=== PATIENT | female | born 1985 | race Caucasian/White ===

== ENCOUNTER 2022-09-04 14:02 | Emergency (ER) | payer OTHER, SELFPAY ==
--- NOTE | ~2022-09-04 | US_ITS ---
EXAMINATION: US VENOUS ULTRASOUND WITH DOPPLER LOWER EXTREMITY, BILATERAL CLINICAL INFORMATION: Edema COMPARISON: None available. TECHNIQUE: Ultrasound of the deep veins is performed from the hip to the calf with compression sonography and color and pulse Doppler assessment. Spectral analysis with color-flow imaging is performed. FINDINGS: RIGHT: There is normal venous compression and respiratory variation and augmented flow. The visualized common femoral vein, superficial femoral vein, profunda femoral vein, popliteal vein, and the trifurcation region shows no evidence of deep venous thrombosis. Suspect mildly complex Acharya's cyst measuring up to 3.1 cm. LEFT: There is normal venous compression and respiratory variation and augmented flow. The visualized common femoral vein, superficial femoral vein, profunda femoral vein, popliteal vein, and the trifurcation region shows no evidence of deep venous thrombosis. Suspect similar Acharya's cyst measuring up to 3.4 cm. If the patient's symptoms persist, followup ultrasound in 5 days 7 days might be of value to exclude proximal propagation from a non-visualized calf vein. US/US venous duplex LE BI IMPRESSION: No DVT demonstrated in the both lower extremity. Acharya's cyst.
--- NOTE | 2022-09-04 15:25 | ED.LOWEXIN ---
HPI - Extremity Injury (Lower) General Chief Complaint: Extremity Injury, Lower Stated Complaint: legs swollen in pain Related Data Home Medications Medication Instructions Recorded Confirmed buprenorphine 8 mg-naloxone 2 mg 30 mg sublingual DAILY 04/20/22 sublingual film (Suboxone) clonidine HCl 0.1 mg tablet 0.1 mg PO BID 04/20/22 methylphenidate HCl 10 mg biphasic 10 mg PO DAILY 04/20/22 50-50 capsule,extended release methylphenidate HCl 40 mg biphasic 40 mg PO DAILY 04/20/22 50-50 capsule,extended release quetiapine 50 mg tablet mg PO 04/20/22 Previous Rx's Medication Instructions Recorded CPAP (CPAP Machine/Device) #1 ea 08/20/22 Allergies Allergy/AdvReac Type Severity Reaction Status Date / Time acetaminophen [Vicodin] Allergy Unknown Itchy Verified 04/20/22 11:00 codeine [CODEINE] Allergy Unknown ITCHING Verified 04/20/22 11:00 hydrocodone [Vicodin] Allergy Unknown Itchy Verified 04/20/22 11:00 tramadol [TRAMADOL] Allergy Unknown DIZZY/NAUSE Verified 04/20/22 11:00 A From VICODIN Allergy Unknown ITCHING Uncoded 11/09/19 18:24 [facility] Past Medical History Medical History (Updated 09/14/22 @ 17:33 by KALPANA Iglesias) ADHD Asthma Brain aneurysm Opioid dependence, in remission Social History Social History Housing: Apartment Patient Tobacco Use Status: Former Tobacco user Tobacco use type: Cigarette e-Cigarette/Vaping Use: Never Used Advance Directives: No Advance Directives Information Provided: Yes service: No Current occupational status: disabled Physical Exam Vital Signs: Vital Signs: Last Vital Signs Temp 97.5 F 09/04/22 15:26 Pulse 81 09/04/22 15:26 Resp 20 09/04/22 15:26 BP 146/90 H 09/04/22 15:26 Pulse Ox 98 09/04/22 15:26 O2 Del Method Room Air 09/04/22 15:26 BMI result Body Mass Index 46.3 Course Course Course Narrative: RME: 36yo F w/PMHx ADHD, Asthma, aneurysm c/o Left sided CP/shoulder pain since this AM and bilateral LE edema x 1 week. Not currently on diuretic. denies SOB +pitting edema noted bilaterally, VSS EKG, Labs, Venous duplex US ordered Full HPI, ROS and PE to be performed by primary ED provider. Medical Decision Making Lab Data 09/04/22 16:14 09/04/22 16:14 Labs: Lab Results 09/04/22 09/04/22 09/04/22 Range/Units 16:14 16:14 16:14 WBC 6.0 (4.8-10.8) X10*3/uL RBC 4.07 L (4.20-5.50) X10*6/uL Hgb 12.2 (12.0-16.0) g/dl Hct 35.9 L (37.0-47.0) % MCV 88.2 (80.0-98.0) fL MCH 30.0 (27.0-33.0) pg MCHC 34.0 (31.0-35.0) g/dl RDW 12.7 (11.0-16.0) % Plt Count 223 (160-400) X10*3/uL MPV 9.8 (9.4-12.3) fL Immature Gran % (Auto) 0.3 (0.0-0.4) % Neut % (Auto) 62.5 (45-73) % Lymph % (Auto) 28.5 (20-40) % Hopkins % (Auto) 6.2 (2-11) % Eos % (Auto) 2.0 (0-4) % Baso % (Auto) 0.5 (0-2) % Lymph # (Auto) 1.7 (1.2-4.9) X10*3/uL Hopkins # (Auto) 0.4 (0.1-1.2) X10*3/uL Eos # (Auto) 0.1 (0.0-0.4) X10*3/uL Baso # (Auto) 0.0 (0.0-0.2) X10*3/uL Abs Immat Gran (auto) 0.02 (0.00-0.03) X10*3/uL Absolute Neuts (auto) 3.7 (2.0-8.3) x10*3/uL Absolute Nucleated RBC 0.000 (0.0-0.012) X10*3/uL Nucleated RBC % (auto) 0.0 (0.0-0.2) /100WBC PT 11.4 (10.0-13.1) SEC INR 1.0 (0.9-1.1) Sodium 136 (135-145) mmol/L Potassium 3.5 (3.3-5.1) mmol/L Chloride 103 (96-108) mmol/L Carbon Dioxide 25 (22-29) mmol/L Anion Gap 12 (12-20) BUN 5 L (9-16) mg/dL Creatinine 0.73 (0.5-1.4) mg/dL Estim Creat Clear Calc 134.9 Estimated GFR > 60 Random Glucose 93 (60-115) mg/dL Calcium 9.3 (8.4-10.2) mg/dL Magnesium 1.8 (1.6-2.6) mg/dL Total Bilirubin 1.5 H (0.0-1.0) mg/dL Direct Bilirubin 0.9 H (0.0-0.5) mg/dL AST 140 H (5-31) U/L ALT 76 H (0-31) U/L Alkaline Phosphatase 165 H (39-117) U/L Troponin I High Sens (<3.5-17.0) ng/L B-Natriuretic Peptide (<100) pg/mL Total Protein 7.4 (6.5-8.0) g/dL Albumin 3.9 (3.5-5.0) g/dL 09/04/22 09/04/22 Range/Units 16:14 16:14 WBC (4.8-10.8) X10*3/uL RBC (4.20-5.50) X10*6/uL Hgb (12.0-16.0) g/dl Hct (37.0-47.0) % MCV (80.0-98.0) fL MCH (27.0-33.0) pg MCHC (31.0-35.0) g/dl RDW (11.0-16.0) % Plt Count (160-400) X10*3/uL MPV (9.4-12.3) fL Immature Gran % (Auto) (0.0-0.4) % Neut % (Auto) (45-73) % Lymph % (Auto) (20-40) % Hopkins % (Auto) (2-11) % Eos % (Auto) (0-4) % Baso % (Auto) (0-2) % Lymph # (Auto) (1.2-4.9) X10*3/uL Hopkins # (Auto) (0.1-1.2) X10*3/uL Eos # (Auto) (0.0-0.4) X10*3/uL Baso # (Auto) (0.0-0.2) X10*3/uL Abs Immat Gran (auto) (0.00-0.03) X10*3/uL Absolute Neuts (auto) (2.0-8.3) x10*3/uL Absolute Nucleated RBC (0.0-0.012) X10*3/uL Nucleated RBC % (auto) (0.0-0.2) /100WBC PT (10.0-13.1) SEC INR (0.9-1.1) Sodium (135-145) mmol/L Potassium (3.3-5.1) mmol/L Chloride (96-108) mmol/L Carbon Dioxide (22-29) mmol/L Anion Gap (12-20) BUN (9-16) mg/dL Creatinine (0.5-1.4) mg/dL Estim Creat Clear Calc Estimated GFR Random Glucose (60-115) mg/dL Calcium (8.4-10.2) mg/dL Magnesium (1.6-2.6) mg/dL Total Bilirubin (0.0-1.0) mg/dL Direct Bilirubin (0.0-0.5) mg/dL AST (5-31) U/L ALT (0-31) U/L Alkaline Phosphatase (39-117) U/L Troponin I High Sens < 2.7 (<3.5-17.0) ng/L B-Natriuretic Peptide < 10 (<100) pg/mL Total Protein (6.5-8.0) g/dL Albumin (3.5-5.0) g/dL Discharge Plan Discharge Clinical Impression: Chest pain Patient Disposition: Elopement Prescriptions: No Action (DME) CPAP Machine/Device Device See Rx Instructions .Route Qty: 1 0RF Rx Instructions: patients needs cpap replaced due to recall, heated humidifier with all necessary supplies quetiapine 50 mg tablet PO methylphenidate HCl 10 mg capsule,ER biphasic 50-50 10 mg PO DAILY methylphenidate HCl 40 mg capsule,ER biphasic 50-50 40 mg PO DAILY buprenorphine-naloxone [Suboxone] 8-2 mg film 30 mg sublingual DAILY clonidine HCl 0.1 mg tablet 0.1 mg PO BID Discharge Date/Time: 09/04/22 23:09
[2022-09-04 15:26] VITALS: BP 146/90; PULSE 81; RESP 20; TEMP 36.4; O2SAT 98; BMI 46.3
--- NOTE | 2022-09-04 15:27 | ECG_ITS ---
Test Reason : CP Blood Pressure : / mmHG Vent. Rate : 069 BPM Atrial Rate : 069 BPM P-R Int : 164 ms QRS Dur : 086 ms QT Int : 376 ms P-R-T Axes : 046 024 013 degrees QTc Int : 402 ms Normal sinus rhythm Normal ECG When compared with ECG of 04-MAY-2018 00:52, Nonspecific T wave abnormality now evident in Anterior leads Referred By: Maryanne Dewey Electronically Signed By:ELISA ELLER MD
[2022-09-04 16:18] LABS: MANUAL DIFF FLAG NO
[2022-09-04 16:20] LABS: Basophils Percent Auto 0.5 % (0-2); Eosinophils Absolute Auto 0.1 X10*3/uL (0.0-0.4); Hematocrit 35.9 % (37.0-47.0); Hemoglobin 12.2 g/dl (12.0-16.0); Imm Gran Abs Auto 0.02 X10*3/uL (0.00-0.03); Imm Gran Pct Auto 0.3 % (0.0-0.4); Lymphocytes Absolute Auto 1.7 X10*3/uL (1.2-4.9); Lymphocytes Percent Auto 28.5 % (20-40); Mean Corpuscular Volume 88.2 fL (80.0-98.0); Mean Platelet Volume 9.8 fL (9.4-12.3); Monocytes Absolute Auto 0.4 X10*3/uL (0.1-1.2); Monocytes Percent Auto 6.2 % (2-11); Neutrophils Absolute Auto 3.7 x10*3/uL (2.0-8.3); Neutrophils Percent Auto 62.5 % (45-73); Platelet Count 223 X10*3/uL (160-400); Red Blood Count 4.07 X10*6/uL (4.20-5.50); Red Cell Distribution Width 12.7 % (11.0-16.0)
[2022-09-04 16:25] LABS: Prothrombin Time 11.4 SEC (10.0-13.1)
[2022-09-04 16:37] LABS: Alanine Aminotransferase 76 U/L (0-31); Albumin Level 3.9 g/dL (3.5-5.0); Alkaline Phosphatase 165 U/L (39-117); Anion Gap 12 (12-20); Aspartate Amino Transferase 140 U/L (5-31); Bilirubin Direct 0.9 mg/dL (0.0-0.5); Bilirubin Total 1.5 mg/dL (0.0-1.0); Blood Urea Nitrogen 5 mg/dL (9-16); Calcium 9.3 mg/dL (8.4-10.2); Carbon Dioxide 25 mmol/L (22-29); Chloride 103 mmol/L (96-108); Creatinine Clr Calc Pharmacy 134.9; Estimated Glomerular Filt Rate > 60; Glucose Random 93 mg/dL (60-115); Magnesium 1.8 mg/dL (1.6-2.6); Potassium 3.5 mmol/L (3.3-5.1); Sodium 136 mmol/L (135-145); Total Protein 7.4 g/dL (6.5-8.0)
[2022-09-04 16:42] LABS: B Type Natriuretic Peptide < 10 pg/mL (<100)
[2022-09-04 16:46] LABS: Troponin-I High Sensitivity < 2.7 ng/L (<3.5-17.0)
--- NOTE | 2022-09-04 22:20 | PC.NURSE ---
This RN called patient to be [facility] at 22:20, no answer at this time.
== END 2022-09-04 23:09 | disposition left against medical advice (07) ==
PROVIDERS: Physician Assistant; Emergency Provider Emergency Medicine; PCP Physician Assistant
DX: R07.89 Other chest pain (principal); R06.02 Shortness of breath; R60.0 Localized edema; Z79.899 Other long term (current) drug therapy; Z87.891 Personal history of nicotine dependence
CPT/HCPCS: 36415; 80048; 80076; 83735; 83880; 84484; 85025; 85610; 93005; 93970; 99283; 99284

== ENCOUNTER → 2022-09-04 15:27 | Outpatient (BNV) | payer OTHER, SELFPAY | PROVIDERS: Emergency Provider Emergency Medicine; PCP Physician Assistant; Visit Provider Internal Medicine Cardiovascular Disease | DX: R07.9 Chest pain, unspecified (principal) | CPT/HCPCS: 93010 ==

== ENCOUNTER 2023-01-07 09:26 | Outpatient (AMB) | payer OTHER, SELFPAY ==
[2023-01-07 09:42] VITALS: BP 154/90; BMI 46.5
--- NOTE | 2023-01-07 09:42 | MHC.PC.OV ---
Vital Signs 01/07/23 09:42 Height 5 ft 4 in Weight 271 lb BMI 46.5 BP 154/90 H Blood Pressure Location Lt brachial Position Sitting Intake Visit Reasons: Bump under L breast Intake Note: Patient here c/o bump under left breast with discharge, would like to know results she had done recently Quality Improvement Coordinator (Rn) Required: No Accompanied by: Self / Same As Patient Allergies acetaminophen [Vicodin] Allergy (Unknown, Verified 01/07/23 10:04) Itchy codeine [CODEINE] Allergy (Unknown, Verified 01/07/23 10:04) ITCHING hydrocodone [Vicodin] Allergy (Unknown, Verified 01/07/23 10:04) Itchy tramadol [TRAMADOL] Allergy (Unknown, Verified 01/07/23 10:04) DIZZY/NAUSEA From VICODIN Allergy (Unknown, Uncoded 01/07/23 10:04) ITCHING Medication List - Last Reconciled 01/07/23 by Mai Roman MD buprenorphine-naloxone 8-2 mg (Suboxone) 30 mg sublingual DAILY clonidine HCl 0.1 mg PO BID CPAP (CPAP Machine/Device) patients needs cpap replaced due to recall, heated humidifier with all necessary supplies methylphenidate HCl 40 mg PO DAILY methylphenidate HCl 10 mg PO DAILY quetiapine mg PO Tobacco use date assessed: 04/20/22 Dental Screening Dental Screen Date: 01/07/23 Did you have a dental visit in the last 12 months?: No Did you have a dental problem in the last 6 months where you did not have access to dental care?: No Was dental information given to patient?: Yes HPI HPI Comments History of Present Illness Details This is a 37-year-old female with opiate dependence in remission, morbid obesity and hepatitis C that comes today complaining of a left skin breast lesion that was a lump that she pressed and now has yellowish secretion. No nipple discharge. No visual disturbances. No masses palpated or pain in both breast. Will start her on antibiotics and refer her to surgery for evaluation. Also will order ultrasound of the breast and mammogram. On Suboxone for her opiate dependence and has been remission. She is morbidly obese with a BMI of 46.5 and was advised to diet and exercise as tolerated to reach BMI goal less than 30. Has history of hepatitis-C and labs were discussed which showed transaminitis. Will be referred for treatment for her hepatitis-C. Will also order ultrasound of the abdomen to check the liver. No jaundice. Denies drinking alcohol. [facility] Medical History (Updated 01/07/23 @ 10:18 by Mai Roman MD) Opioid dependence, in remission Brain aneurysm ADHD Asthma Surgical History History of hand surgery Social History (Updated 01/07/23 @ 10:06 by Mai Roman MD) Housing: Apartment Alcohol intake: never Patient Tobacco Use Status: Former Tobacco user Tobacco use type: Cigarette e-Cigarette/Vaping Use: Never Used Second Hand Smoke Exposure: No service: No Current occupational status: disabled Cognitive needs: No Hearing needs: No Vision needs: No Questionnaire Thrive Questionnaire Date Thrive assessed: 04/20/22 MENG-7 AMB Questionnaire MENG-7 Date MENG - 7 assessed: 04/20/22 Source: Developed by Drs. Nathan Roberts, Grace Gonzalez, Silvano Lucas and colleagues, with an educational bethany from [employer]. Review of Systems Const All systems reviewed & are unremarkable except as noted in HPI and below Eyes Reports no additional complaints, Denies change in vision and Denies other visual disturbances Card Denies chest pain at rest, Denies chest pain with activity, Denies edema, Denies irregular heart rhythm, Denies claudication, Denies dyspnea, Denies dyspnea on exertion, Denies orthopnea, Denies paroxysmal nocturnal dyspnea and Denies slow heart rate Resp Denies cough, Denies dyspnea and Denies dyspnea on exertion GI Denies abdominal pain, Denies change in bowel habits, Denies excessive flatus, Denies nausea and Denies vomiting Denies urinary incontinence, Denies urinary hesitancy and Denies urinary urgency Musc Denies abnormal gait, Denies atrophy, Denies deformity and Denies limited range of motion Skin/Breast Denies bleeding lesions, Denies changing lesions and Denies rash Neuro Denies abnormal gait and Denies lack of coordination Physical exam (Primary Care) Vital Signs: Last Vital Signs BP 154/90 H 01/07/23 09:42 BMI result Body Mass Index 46.5 Tobacco/Smoking Status: Tobacco use Status Tobacco use date assessed 04/20/22 01/07/23 09:50 Patient Tobacco Use Status Former Tobacco user 01/07/23 09:50 Tobacco use type Cigarette 01/07/23 09:50 e-Cigarette/Vaping Use Never Used 01/07/23 09:50 Thrive Assessment: Date of Thrive Assessment Date Thrive assessed 04/20/22 01/07/23 09:50 Eyes General: appearance normal, both eyes and all related structures Eyelids: Yes eyelids normal Conjunctivae: conjunctivae normal Neck Neck: Yes normal visual inspection and Yes supple Chest Breast/axilla inspection: abnormal inspection of the breast (left breast skin lesion at 9 o'clock) Resp Effort & Inspection: normal respiratory effort Auscultation: clear to auscultation bilaterally Cardio Jugular venous distension: no JVD Rate: regular rate Rhythm: regular rhythm Heart sounds: S1 normal heart sound present and S2 normal heart sound present Extrem General: Yes full ROM Office Procedures Flu Questionnaire Does the patient have a severe egg allergy?: No Immunizations flu vacc [id number] 6mos up(PF) 60 mcg(15 mcgx4)/0.5 mL IM syringe Performing Provider: Mai Roman MD [facility] Documented (not given) by: REGINO Nichols on 01/07/23 09:52 Reason Not Given: Patient Refused Assessment and Plan Assessment & Plan (1) Skin lesion of breast: Code(s): L98.8 - Other specified disorders of the skin and subcutaneous tissue Plan: Start Bactrim DS. Referred to general surgery. Ultrasound of the breast and mammogram ordered. (2) Morbid obesity with BMI of 45.0-49.9, adult: Code(s): E66.01 - Morbid (severe) obesity due to excess calories; Z68.42 - Body mass index [BMI] 45.0-49.9, adult Plan: Start diet and exercise. BMI goal is less than 30. (3) Opioid dependence, in remission: Code(s): F11.21 - Opioid dependence, in remission Plan: Continue Suboxone (4) Transaminitis: Code(s): R74.01 - Elevation of levels of liver transaminase levels Plan: Repeat liver enzymes. Ultrasound of the liver ordered. Referred to Gastroenterology. Orders: Orders US abdomen comp w elastography Today R74.01 - Elevation of levels of liver transaminase levels Hepatitis C Genotype Today B19.20 - Unspecified viral hepatitis C without hepatic coma US breast LT complete Today L98.8 - Other specified disorders of the skin and subcutaneous tissue Influenza [id number] Immunization Today Z23 - Encounter for immunization Liver Panel Today B19.20 - Unspecified viral hepatitis C without hepatic coma Hepatitis C Antibody Today B19.20 - Unspecified viral hepatitis C without hepatic coma Hepatitis C Viral Load Today B19.20 - Unspecified viral hepatitis C without hepatic coma MM diagnostic mammo BI Today L98.8 - Other specified disorders of the skin and subcutaneous tissue Referrals General Surgery Referral L98.8 - Other specified disorders of the skin and subcutaneous tissue Gastroenterology Referral B19.20 - Unspecified viral hepatitis C without hepatic coma Medications: New sulfamethoxazole-trimethoprim 800-160 mg (Bactrim DS) 1 tab PO BID 10 days 20 tabs 0RF Coding Level of Care Code Est Pt Level 4 (57174) Diagnoses Skin lesion of breast L98.8 Morbid obesity with BMI of 45.0-49.9, adult E66.01; Z68.42 Opioid dependence, in remission F11.21 Transaminitis R74.01 Time Spent (min) 23
== END 2023-01-07 10:14 | disposition home or self-care (01) ==
PROVIDERS: PCP Physician Assistant; Visit Provider Internal Medicine
DX: L98.8 Other specified disorders of the skin and subcutaneous tissue (principal); E66.01 Morbid (severe) obesity due to excess calories; Z68.42 Body mass index [BMI] 45.0-49.9, adult; F11.21 Opioid dependence, in remission; R74.01 Elevation of levels of liver transaminase levels
CPT/HCPCS: 99214

== ENCOUNTER 2023-01-07 10:24 | Outpatient (REF) | payer OTHER, SELFPAY ==
[2023-01-07 11:17] LABS: Alanine Aminotransferase 20 U/L (0-31); Albumin Level 4.1 g/dL (3.5-5.0); Alkaline Phosphatase 140 U/L (39-117); Aspartate Amino Transferase 18 U/L (5-31); Bilirubin Direct 0.1 mg/dL (0.0-0.5); Bilirubin Total 0.3 mg/dL (0.0-1.0); Total Protein 7.5 g/dL (6.5-8.0)
[2023-01-07 11:38] LABS: ~HepC Num1 0.14 S/CO (0.00-0.79); ~Hepatitis C Antibody Nonreactive (Nonreactive)
[2023-01-09 15:34] LABS: HCV RNA PCR Qn <1.18 NOT DETECTED Log IU/mL (NOT DETECTED); HCV RNA PCR Qn <15 NOT DETECTED IU/mL (NOT DETECTED)
== END 2023-01-07 10:25 | disposition home or self-care (01) ==
LOC: HO.LAB 10:24
PROVIDERS: PCP Physician Assistant; Visit Provider Internal Medicine
DX: B19.20 Unspecified viral hepatitis C without hepatic coma (principal)
CPT/HCPCS: 36415; 80076; 86803; 87522; 87902

== ENCOUNTER 2023-01-22 09:49 | Outpatient (AMB) | payer OTHER, SELFPAY ==
--- NOTE | 2023-01-22 09:50 | MHC.OFFVIS ---
Intake Vital Signs 01/22/23 10:06 Height 5 ft 4 in Weight 274 lb BMI 47.0 BP 142/80 H Blood Pressure Location Lt brachial Position Sitting Pulse 95 Intake Visit Reasons: Skin lesion of breast Intake Note: Patient is seen in office for evaluation and treatment of a skin lesion of the left breast. Pt c/o: onset one month, started as a red spot filled with blood under the left breast, after touching it became bigger, red, discharge, painful, no prior breast surgeries or concerns, no family hx of breast cancer, currently on antbx with minimal relief mm: Electrical Tryout Person Required: No Accompanied by: Family/Other Allergies acetaminophen [Vicodin] Allergy (Unknown, Verified 01/22/23 10:03) Itchy codeine [CODEINE] Allergy (Unknown, Verified 01/22/23 10:03) ITCHING hydrocodone [Vicodin] Allergy (Unknown, Verified 01/22/23 10:03) Itchy tramadol [TRAMADOL] Allergy (Unknown, Verified 01/22/23 10:03) DIZZY/NAUSEA From VICODIN Allergy (Unknown, Uncoded 01/22/23 10:03) ITCHING Medication List - Last Reconciled 01/22/23 by Raffi Woo MD buprenorphine-naloxone 8-2 mg (Suboxone) 30 mg sublingual DAILY clonidine HCl 0.1 mg PO BID CPAP (CPAP Machine/Device) patients needs cpap replaced due to recall, heated humidifier with all necessary supplies methylphenidate HCl 40 mg PO DAILY methylphenidate HCl 10 mg PO DAILY quetiapine mg PO sulfamethoxazole-trimethoprim 800-160 mg (Bactrim DS) 1 tab PO BID 10 days HPI HPI Comments History of Present Illness Details 37-year-old female patient presenting with a left breast skin lesion. Feels the lesion began as a small bump located in the lower inner portion of the left breast. She squeezed the lesion trying to drain it however it subsequently increased in size and became red and painful. She initially noted bloody discharge which subsequently became green over the last week. She now reports that the lesion is no longer draining. She denies fever, chills or other associated symptoms. She denies previous surgery in this location. Her family history is negative for breast cancer. [facility], [facility] Medical History Opioid dependence, in remission Brain aneurysm ADHD Asthma Surgical History History of hand surgery Social History Housing: Apartment Alcohol intake: never Patient Tobacco Use Status: Former Tobacco user Tobacco use type: Cigarette e-Cigarette/Vaping Use: Never Used Second Hand Smoke Exposure: No service: No Current occupational status: disabled Cognitive needs: No Hearing needs: No Vision needs: No Female Reproductive History Menstrual Age of Menarche: 10 Date of last menstrual period: 01/01/23 Total pregnancies: 8 Number of Living Children: 4 Ab induced: 1 Ab spontaneous: 3 Review of Systems Const All systems reviewed & are unremarkable except as noted in HPI and below Denies chills, Denies fever(s), Denies headache(s), Denies poor appetite and Denies weakness ENT Denies headache(s) Card Denies chest pain, Denies irregular heart rhythm, Denies palpitations and Denies dyspnea Resp Denies cough, Denies excessive phlegm production and Denies dyspnea GI Denies abdominal pain, Denies bloating, Denies change in bowel habits, Denies constipation, Denies heartburn, Denies diarrhea, Denies nausea and Denies vomiting Denies urinary frequency Musc Denies back pain, Denies muscle weakness and Denies numbness Skin/Breast Reports as per HPI, Denies changing lesions and Denies unusual bruising Neuro Denies headache(s), Denies numbness, Denies paresthesias and Denies weakness Psych Denies anxiety and Denies depression Endo Denies palpitations Tao/Lymph Denies lymphadenopathy Physical Exam Vital Signs: Last Vital Signs Pulse 95 01/22/23 10:06 BP 142/80 H 01/22/23 10:06 BMI result Body Mass Index 47.0 Const General: cooperative and no acute distress Nutritional Appearance: well nourished Orientation/consciousness: patient oriented x3 Limitations: no limitations HEENT Head: Yes normocephalic and Yes atraumatic Ears: hearing grossly normal bilaterally Chest Other: Left breast: Large pedunculated mass emanating from the 9 o'clock position with reddish skin change measuring approximately 2 cm in diameter with a base measuring 1 cm in diameter. No underlying masses palpable below the skin. No other skin lesions are appreciated in the left breast. Chest/axillae images: 1. Left breast skin lesion /mass Resp Effort & Inspection: normal respiratory effort, no audible wheezes, no cough and no respiratory distress Cardio Jugular venous distension: no JVD GI Inspection: Yes normal to inspection Skin Other: Warm, dry, no rash Neuro General: patient oriented x3 Extrem General: Yes no clubbing, cyanosis or edema Assessment & Plan Assessment & Plan (1) Left breast mass: Code(s): N63.20 - Unspecified lump in the left breast, unspecified quadrant Qualifiers: Breast mass location: lower inner quadrant Qualified Code(s): N63.24 - Unspecified lump in the left breast, lower inner quadrant Plan: 37-year-old female patient presenting with a rapidly enlarging left skin lesion/mass located in the lower inner quadrant of the left breast. I recommended excision of this mass as a short-stay surgery and after discussion of the procedure, risks, and alternatives, she consents to excision of the left breast mass. Coding Level of Care Code New Pt Level 4 (72867) Diagnoses Mass of lower inner quadrant of left breast N63.24 Breast mass location: lower inner quadrant
[2023-01-22 10:06] VITALS: BP 142/80; PULSE 95; BMI 47.0
== END 2023-01-22 10:36 | disposition home or self-care (01) ==
PROVIDERS: PCP Physician Assistant; Referring Provider Internal Medicine; Visit Provider Surgery
DX: N63.24 Unspecified lump in the left breast, lower inner quadrant (principal)
CPT/HCPCS: 99204

== ENCOUNTER → 2023-01-22 09:49 | Outpatient (BNVA) | payer OTHER, SELFPAY | PROVIDERS: PCP Physician Assistant; Referring Provider Internal Medicine; Visit Provider Surgery | DX: N63.24 Unspecified lump in the left breast, lower inner quadrant (principal) | CPT/HCPCS: 99202 ==

== ENCOUNTER 2023-02-03 07:42 | Day surgery (SDC) | payer OTHER, SELFPAY ==
[2023-02-01 15:50] VITALS: BMI 47.0
[2023-02-01 16:28] VITALS: BMI 46.9
--- NOTE | 2023-02-02 10:38 | HO.ANESPROP2 ---
Documented by User: Enid Espinoza NP 02/02/23 11:11 HPI - Anesthesia Eval Consult details Narrative: 37yo F for Left Breast Mass Excision Suboxone daily Hx of seizures. None since age 13. Cerebral aneurysm (4mm). Last neuro f/u 2019. [facility] Active Problems Active Problems: All Active Problems (Updated 02/01/23 @ 16:35 by Amy Helm, CHRISSY) Left breast mass (Acute) Morbid obesity with BMI of 45.0-49.9, adult (Acute) Skin lesion of breast (Acute) Transaminitis (Acute) Hepatitis C (Acute) LORNE (obstructive sleep apnea) (Acute) Opioid dependence, in remission (Acute) ADHD (Acute) Asthma (Acute) Past Medical History Medical History (Updated 02/01/23 @ 16:35 by Amy Helm RN) Transaminitis Hx of vertigo History of hepatitis C Elevated LFTs Wears dentures IUD (intrauterine device) in place Herniated lumbar intervertebral disc Hx of seizure disorder History of concussion LORNE on CPAP Anxiety Opioid dependence, in remission Brain aneurysm ADHD Asthma Surgical History Surgical History (Updated 02/01/23 @ 16:32 by Amy Helm RN) History of hand surgery Social History Social History (Updated 02/01/23 @ 16:26 by Amy Helm RN) Housing: Apartment Are you a primary animal care provider to a significant other at home: Yes (2-sons, mom to help post-op) Do you presently have visiting nurse or other home services: No Alcohol intake: never Patient Tobacco Use Status: Former Tobacco user Quit Date: 2012 Tobacco use type: Cigarette e-Cigarette/Vaping Use: Never Used Second Hand Smoke Exposure: No Substance Use Type: Former Substance User and Opiates Substance Use Type Other:: on Suboxone 6 years Substance Use Frequency Other:: on Suboxone 6 years Have you been hit, kicked, punched, or otherwise hurt by someone within the past year? If so, by whom?: No Are you DNR?: No Advance Directives: No Advance Directives Information Provided: Yes Advance Directives on File: No Recently lost weight without trying: No Nutrition Risks: No Nutritional Risk Patient : No FDLMP: 01/18/2023 : No service: No Current occupational status: disabled Cognitive needs: No Hearing needs: No Vision needs: No Meds Allergies Allergy/AdvReac Type Severity Reaction Status Date / Time acetaminophen [Vicodin] Allergy Unknown Itchy Verified 01/22/23 10:03 codeine [CODEINE] Allergy Unknown ITCHING Verified 01/22/23 10:03 hydrocodone [Vicodin] Allergy Unknown Itchy Verified 01/22/23 10:03 tramadol [TRAMADOL] Allergy Unknown DIZZY/NAUSE Verified 01/22/23 10:03 A Home Medications Medication Instructions Recorded Confirmed Last Taken Type buprenorphine 8 mg-naloxone 2 mg 8 mg sublingual TID 04/20/22 02/01/23 Unknown History sublingual film (Suboxone) clonidine HCl 0.1 mg tablet 0.1 mg PO BID 04/20/22 02/01/23 Unknown History methylphenidate HCl 10 mg biphasic 50 mg PO DAILY 04/20/22 02/01/23 Unknown History 50-50 capsule,extended release quetiapine 50 mg tablet 50 mg PO DAILY 04/20/22 02/01/23 Unknown History Exam Height,Weight and Vital Signs: Height 5 ft 4 in Weight 123.831 kg Pertinent Lab Results Pertinent Lab Results: Laboratory Tests 09/04/22 16:14 WBC 6.0 Hgb 12.2 Hct 35.9 L Plt Count 223 Sodium 136 Potassium 3.5 Chloride 103 Carbon Dioxide 25 BUN 5 L Creatinine 0.73 Narrative Narrative: EKG 08/2022 Vent. Rate : 069 BPM Atrial Rate : 069 BPM P-R Int : 164 ms QRS Dur : 086 ms QT Int : 376 ms P-R-T Axes : 046 024 013 degrees QTc Int : 402 ms Normal sinus rhythm Normal ECG When compared with ECG of 04-MAY-2018 00:52, Nonspecific T wave abnormality now evident in Anterior leads Assessment and Plan Assessment Anesthesia Assessment: Chart Reviewed Documented by User: Mary Gooden MD 02/03/23 09:16 [facility] Past Medical History Medical History (Updated 02/01/23 @ 16:35 by Amy Helm RN) Transaminitis Hx of vertigo History of hepatitis C Elevated LFTs Wears dentures IUD (intrauterine device) in place Herniated lumbar intervertebral disc Hx of seizure disorder History of concussion LORNE on CPAP Anxiety Opioid dependence, in remission Brain aneurysm ADHD Asthma Family History Family history of problems with anesthesia: No Surgical History Surgical History (Updated 02/01/23 @ 16:32 by Amy Helm RN) History of hand surgery History of Problems with Anesthesia: No Social History Social History (Updated 02/01/23 @ 16:26 by Amy Helm RN) Housing: Apartment Are you a primary animal care provider to a significant other at home: Yes (2-sons, mom to help post-op) Do you presently have visiting nurse or other home services: No Alcohol intake: never Patient Tobacco Use Status: Former Tobacco user Quit Date: 2012 Tobacco use type: Cigarette e-Cigarette/Vaping Use: Never Used Second Hand Smoke Exposure: No Substance Use Type: Former Substance User and Opiates Substance Use Type Other:: on Suboxone 6 years Substance Use Frequency Other:: on Suboxone 6 years Have you been hit, kicked, punched, or otherwise hurt by someone within the past year? If so, by whom?: No Are you DNR?: No Advance Directives: No Advance Directives Information Provided: Yes Advance Directives on File: No Recently lost weight without trying: No Nutrition Risks: No Nutritional Risk Patient : No FDLMP: 01/18/2023 : No service: No Current occupational status: disabled Cognitive needs: No Hearing needs: No Vision needs: No Meds Allergies Allergy/AdvReac Type Severity Reaction Status Date / Time acetaminophen [Vicodin] Allergy Unknown Itchy Verified 01/22/23 10:03 codeine [CODEINE] Allergy Unknown ITCHING Verified 01/22/23 10:03 hydrocodone [Vicodin] Allergy Unknown Itchy Verified 01/22/23 10:03 tramadol [TRAMADOL] Allergy Unknown DIZZY/NAUSE Verified 01/22/23 10:03 A Home Medications Medication Instructions Recorded Confirmed Last Taken Type buprenorphine 8 mg-naloxone 2 mg 8 mg sublingual TID 04/20/22 02/01/23 Unknown History sublingual film (Suboxone) clonidine HCl 0.1 mg tablet 0.1 mg PO BID 04/20/22 02/01/23 Unknown History methylphenidate HCl 10 mg biphasic 50 mg PO DAILY 04/20/22 02/01/23 Unknown History 50-50 capsule,extended release quetiapine 50 mg tablet 50 mg PO DAILY 04/20/22 02/01/23 Unknown History Exam Airway Mallampati Class: II (edentulous on top, missing a couple on the bottom) TM Dist: >3cm Neck ROM: Full Heart: rrr Lungs: cta Assessment and Plan Assessment Anesthesia Assessment: Anesthesia Plan Discussed Final Anesthetic Review Family History of Problems with Anesthesia: No History of Problems with Anesthesia: No NPO: Yes ASA Class: III Final Preanesthetic Review: No Changes in Pt Med Stat, Meds/Allgs Chart Reviewed and Consent Obtained/Reviewed Patient Risk: Intermediate Procedure Risk: Intermediate Anesthetic Plan Anesthetic Plan: GA Disposition: Standard PACU
[2023-02-03 08:05] VITALS: BMI 48.5
[2023-02-03 08:20] VITALS: BP 148/85; PULSE 79; RESP 16; TEMP 36.9; O2SAT 98
[2023-02-03] MEDS: Lactated Ringers 1,000 ML 100 ML IVCONT (08:37)
[2023-02-03 08:41] LABS: UPreg QC Valid YES; Urine Pregnancy NEGATIVE (NEGATIVE)
--- NOTE | 2023-02-03 09:14 | MHC.SHP ---
Pre-Procedural Eval Section A Date of Service: 02/03/23 The patient is an INPATIENT: No Changes since office visit: Yes Patient answered all questions; No Cold of Flu in the past 2 weeks, No New Medical Problems and No Changes in Medication The History & Physical has been completed within 30 days and I have reviewed it.: Yes Section B Chief Complaint: Unspecified lump in the left breast, lower inner q Allergies: Allergies Allergy/AdvReac Type Severity Reaction Status Date / Time acetaminophen [Vicodin] Allergy Unknown Itchy Verified 01/22/23 10:03 codeine [CODEINE] Allergy Unknown ITCHING Verified 01/22/23 10:03 hydrocodone [Vicodin] Allergy Unknown Itchy Verified 01/22/23 10:03 tramadol [TRAMADOL] Allergy Unknown DIZZY/NAUSE Verified 01/22/23 10:03 A Plan Diagnosis/Plan: Unchanged I have reviewed the history and physical and performed a pertinent physical examination on my patient. No changes have occurred unless specified. Time Spent With Patient Time: Total time managing care of this patient today ____ minutes.
--- NOTE | 2023-02-03 10:05 | P.OP_ITS ---
Operative Note Operative Note Date of Service: 02/03/23 Narrative: Preoperative diagnosis: left Breast skin mass Postoperative diagnosis: same Procedure: left breast lumpectomy Surgeon: Raffi Woo MD Vehicle Insurance Agent: Marina Burns PA-C Anesthesia: general LMA Indications for procedure: 37-year-old female presenting with a large pedunculated skin mass located in the left breast in the lower inner quadrant. Patient is having increased pain, bleeding and discharge from the lesion. She presents today for excision. Operative findings: 3 cm pedunculated skin mass located in the left breast lower inner quadrant. Specimen: Lesion left breast Estimated blood loss: 2 mL Complications: none Procedure details: patient was brought to the OR placed in a supine position. After administering general anesthesia patient's left breast was prepped with Betadine and draped in a sterile fashion. A surgical time-out was called the consent confirmed. Patient received preoperative antibiotics and Venodyne boots were in place. Local anesthesia was infiltrated below the skin lesion circumferentially. Elliptical incision oriented transversely was then created with a 15 blade. This carried out through subcutaneous tissue and around the skin lesion. This was passed off the table sent to pathology for further examination. Hemostasis was assured using electrocautery. Dermis was then reapproximated using interrupted 3-0 Polysorb sutures. Skin was closed using in terrupted 4-0 nylon sutures. Sterile dressings consisting of 4 x 4 gauze and Tegaderm were then applied. The patient tolerated the procedure well. Sponge, instrument, needle counts reported as correct. The patient was transferred to PACU in stable condition.
[2023-02-03 10:10] VITALS: BP 147/80; PULSE 84; RESP 16; TEMP 36.3; O2SAT 95
[2023-02-03 10:15] VITALS: BP 142/82; PULSE 82; RESP 16; O2SAT 94
[2023-02-03 10:20] VITALS: BP 149/82; PULSE 80; RESP 17; O2SAT 94
[2023-02-03 10:25] VITALS: BP 125/60; PULSE 79; RESP 17; O2SAT 95
[2023-02-03 10:41] VITALS: BP 146/90; PULSE 75; RESP 18; TEMP 36.3; O2SAT 97
== END 2023-02-03 11:23 | disposition home or self-care (01) ==
PROVIDERS: Nurse Practitioner; PCP Physician Assistant; Visit Provider Surgery
PROC: (CPT 19120; principal; 2023-02-03 09:10)
DX: D18.01 Hemangioma of skin and subcutaneous tissue (principal); L92.8 Other granulomatous disorders of the skin and subcutaneous tissue; G47.33 Obstructive sleep apnea (adult) (pediatric); I67.1 Cerebral aneurysm, nonruptured; J45.909 Unspecified asthma, uncomplicated; F90.9 Attention-deficit hyperactivity disorder, unspecified type; Z99.89 Dependence on other enabling machines and devices; Z79.899 Other long term (current) drug therapy; F11.21 Opioid dependence, in remission; Z88.5 Allergy status to narcotic agent; Z87.891 Personal history of nicotine dependence
CPT/HCPCS: 19120; 81025; 88304; 88305; J0665; J0690; J1100; J2250; J2405; J2704; J3010

== ENCOUNTER → 2023-02-03 07:42 | Outpatient (BNV) | payer OTHER, SELFPAY | PROVIDERS: PCP Physician Assistant; Visit Provider Surgery | DX: D18.09 Hemangioma of other sites (principal) | CPT/HCPCS: 21556 ==

== ENCOUNTER 2023-02-11 10:42 | Outpatient (AMB) | payer OTHER, SELFPAY ==
--- NOTE | 2023-02-11 10:44 | A.OFFVIS_ITS ---
Intake Vital Signs 02/11/23 10:52 BP 152/69 H Blood Pressure Location Rt brachial Position Sitting Pulse 100 Intake Visit Reasons: S/p exc left breast mass (María pt) Intake Note: This patient presents for a post-op assessment status post left breast lumpectomy. *JJM* 02/03/2023 Pt c/o; reports blister on breast thinks might of been an allergic reaction to one of the antibacterial solutions used on breast, reports pain. Premium Service Representative Required: No Accompanied by: Self / Same As Patient Allergies acetaminophen [Vicodin] Allergy (Unknown, Verified 02/11/23 10:54) Itchy codeine [CODEINE] Allergy (Unknown, Verified 02/11/23 10:54) ITCHING hydrocodone [Vicodin] Allergy (Unknown, Verified 02/11/23 10:54) Itchy tramadol [TRAMADOL] Allergy (Unknown, Verified 02/11/23 10:54) DIZZY/NAUSEA HPI S/p exc left breast mass (María pt) HPI Details She had undergone excision of a left breast mass with Dr. Woo last February 03, 2023. She tolerated procedure well. She describes some pain on the excision site but otherwise feels well overall. [facility] Medical History Transaminitis Hx of vertigo History of hepatitis C Elevated LFTs Wears dentures IUD (intrauterine device) in place Herniated lumbar intervertebral disc Hx of seizure disorder History of concussion LORNE on CPAP Anxiety Opioid dependence, in remission Brain aneurysm ADHD Asthma Surgical History History of hand surgery Social History Housing: Apartment Are you a primary medicare coordinator to a significant other at home: Yes (2-sons, mom to help post-op) Do you presently have visiting nurse or other home services: No Alcohol intake: never Patient Tobacco Use Status: Former Tobacco user Quit Date: 2012 Tobacco use type: Cigarette e-Cigarette/Vaping Use: Never Used Second Hand Smoke Exposure: No Substance Use Type: Former Substance User and Opiates service: No Current occupational status: disabled Cognitive needs: No Hearing needs: No Vision needs: No Female Reproductive History Menstrual Age of Menarche: 10 Review of Systems Const Denies chills and Denies fever(s) Card Denies chest pain, Denies dyspnea and Denies dyspnea on exertion Resp Denies cough, Denies dyspnea and Denies dyspnea on exertion GI Denies hematochezia and Denies change in bowel habits Denies hematuria Musc Denies back pain and Denies limited range of motion Neuro Denies focal weakness and Denies convulsions Psych Denies depression and Denies mood swings Physical Exam Const General: comfortable and no acute distress Chest Other: Excision site on the left breast is well healed, sutures intact, no evidence of any infection, no hematoma Assessment & Plan Assessment & Plan (1) Left breast mass: Code(s): N63.20 - Unspecified lump in the left breast, unspecified quadrant Qualifiers: Breast mass location: lower inner quadrant Qualified Code(s): N63.24 - Unspecified lump in the left breast, lower inner quadrant Plan: Status post excision of a left breast mass by Dr. Woo. Her incision is well healed. There is no evidence of any wound infection. Her path report shows a cavernous hemangioma and granulation tissue. There was no evidence of any malignant neoplastic process I explained to her the benign nature of her pathology. She can otherwise follow up on a p.r.n. basis. Coding Level of Care Code Global (32669) Diagnoses Mass of lower inner quadrant of left breast N63.24 Breast mass location: lower inner quadrant
[2023-02-11 10:52] VITALS: BP 152/69; PULSE 100
== END 2023-02-11 11:12 | disposition home or self-care (01) ==
PROVIDERS: PCP Physician Assistant; Visit Provider Surgery
DX: N63.24 Unspecified lump in the left breast, lower inner quadrant (principal)
CPT/HCPCS: 99024

== ENCOUNTER → 2023-02-11 10:42 | Outpatient (BNVA) | payer OTHER, SELFPAY | PROVIDERS: PCP Physician Assistant; Visit Provider Surgery | DX: N63.24 Unspecified lump in the left breast, lower inner quadrant (principal) | CPT/HCPCS: 99212 ==

== ENCOUNTER 2023-02-25 08:27 | Outpatient (AMB) | payer OTHER, SELFPAY ==
--- NOTE | 2023-02-25 08:36 | MHC.OFFVIS ---
Intake Vital Signs 02/25/23 08:48 Height 5 ft 4 in Weight 273 lb 4 oz BMI 46.9 BP 179/84 H Blood Pressure Location Lt brachial Position Sitting Pulse 107 H Intake Visit Reasons: wound check, open wound/ drainage Intake Note: Patient is seen in office for wound check, post left breast lumpectomy. Pt c/o: admits to open wound, discharge, hot to the touch, painful, all symptoms since the stitches were removed at last visit sx: 02/03/23 Jr:02/11/23 [employer] Rep Required: No Accompanied by: Self / Same As Patient Allergies acetaminophen [Vicodin] Allergy (Unknown, Verified 02/25/23 08:43) Itchy codeine [CODEINE] Allergy (Unknown, Verified 02/25/23 08:43) ITCHING hydrocodone [Vicodin] Allergy (Unknown, Verified 02/25/23 08:43) Itchy tramadol [TRAMADOL] Allergy (Unknown, Verified 02/25/23 08:43) DIZZY/NAUSEA Medication List - Last Reconciled 02/25/23 by Raffi Woo MD buprenorphine-naloxone 8-2 mg (Suboxone) 8 mg sublingual TID clonidine HCl 0.1 mg PO BID CPAP (CPAP Machine/Device) patients needs cpap replaced due to recall, heated humidifier with all necessary supplies methylphenidate HCl 50 mg PO DAILY quetiapine 50 mg PO DAILY sulfamethoxazole-trimethoprim 800-160 mg (Bactrim DS) 1 tab PO BID 10 days HPI HPI Comments History of Present Illness Details Patient returns 1 week after removal of sutures with an open wound in the lower inner quadrant left breast. She feels the wound opened soon after suture removal. She has been applying a dressing because of discharge. She does note some greenish discharge on her dressing. [facility] Medical History Transaminitis Hx of vertigo History of hepatitis C Elevated LFTs Wears dentures IUD (intrauterine device) in place Herniated lumbar intervertebral disc Hx of seizure disorder History of concussion LORNE on CPAP Anxiety Opioid dependence, in remission Brain aneurysm ADHD Asthma Surgical History History of lumpectomy of left breast (02/03/23) History of hand surgery Social History Housing: Apartment Are you a primary wound care rn to a significant other at home: Yes (2-sons, mom to help post-op) Do you presently have visiting nurse or other home services: No Alcohol intake: never Patient Tobacco Use Status: Former Tobacco user Quit Date: 2012 Tobacco use type: Cigarette e-Cigarette/Vaping Use: Never Used Second Hand Smoke Exposure: No Substance Use Type: Former Substance User and Opiates service: No Current occupational status: disabled Cognitive needs: No Hearing needs: No Vision needs: No Female Reproductive History Menstrual Age of Menarche: 10 Physical Exam Const General: no acute distress Chest Other: Left breast with a small open wound measuring point cm in diameter. The majority of the incision is closed and no underlying abscess is appreciated. Wound was dressed with bacitracin and dry sterile dressings. Skin Other: Warm, dry, no rash Assessment & Plan Assessment & Plan (1) Left breast mass: Code(s): N63.20 - Unspecified lump in the left breast, unspecified quadrant Qualifiers: Breast mass location: lower inner quadrant Qualified Code(s): N63.24 - Unspecified lump in the left breast, lower inner quadrant Plan Patient developed a small superficial wound separation in the left breast incision. There is no evidence of underlying infection or cellulitis. Will apply bacitracin ointment and dry sterile dressing on a daily basis. She should follow-up in 1-2 weeks for wound examination. Coding Level of Care Code Global (44237) Diagnoses Mass of lower inner quadrant of left breast N63.24 Breast mass location: lower inner quadrant
[2023-02-25 08:48] VITALS: BP 179/84; PULSE 107; BMI 46.9
== END 2023-02-25 08:52 | disposition home or self-care (01) ==
PROVIDERS: PCP Physician Assistant; Visit Provider Surgery
DX: N63.24 Unspecified lump in the left breast, lower inner quadrant (principal)
CPT/HCPCS: 99024

== ENCOUNTER → 2023-02-25 08:27 | Outpatient (BNVA) | payer OTHER, SELFPAY | PROVIDERS: PCP Physician Assistant; Visit Provider Surgery | DX: N63.24 Unspecified lump in the left breast, lower inner quadrant (principal) | CPT/HCPCS: 99212 ==

== ENCOUNTER 2023-03-16 08:26 | Outpatient (REF) | payer OTHER, SELFPAY ==
--- NOTE | ~2023-03-16 | US_ITS ---
EXAMINATION: US COMPLETE ABDOMEN WITH LIVER ELASTOGRAPHY CLINICAL INFORMATION: Elevated transaminase levels. COMPARISON: None available. TECHNIQUE: Real-time imaging of the abdominal viscera. Noninvasive ultrasound liver fibrosis assessment is performed using Torie ElastPQ point quantification shear wave elastography (2D-SWE) with a C5-2 MHz transducer. Multiple elastography samples are obtained. FINDINGS: PANCREAS: Normal. The visualized pancreatic head and body are normal in appearance. The remainder of the pancreas is obscured from visualization by the overlying bowel gas. ABDOMINAL AORTA: The mid abdominal aorta is obscured by bowel gas. No aneurysm is detected. INFERIOR VENA CAVA: Visualized portions are normal. LIVER: Normal. The liver demonstrates normal size, contour and echogenicity. No focal lesion or intrahepatic biliary duct dilatation. The right lobe measures 14.9 cm in length. The left lobe measures 12.6 cm in length. Portal flow is towards the liver (hepatopetal). Shear wave liver elastography median stiffness is 1.49 m/s (reference: normal median stiffness is 1.3 m/s or less). IQR/median stiffness to assess sampling precision is 0.28 (reference: good quality data set is IQR/median stiffness of 0.15 or less). GALLBLADDER: Normal. The gallbladder is physiologically distended without evidence of stones, sludge, polyps, wall thickening or pericholecystic fluid. COMMON BILE DUCT: Normal in caliber measuring 1.0 cm in diameter. RIGHT KIDNEY: No hydronephrosis. No renal calculi. A benign lower pole 2.0 cm Bosniak class I renal cyst is noted which requires no additional imaging or follow up. No solid renal masses are seen. The kidney measures 11.9 cm in maximum dimension. LEFT KIDNEY: Normal. No hydronephrosis. No renal calculi or focal parenchymal lesions. The kidney measures 11.3 cm in maximum dimension. SPLEEN: The spleen is enlarged measuring 13.7 cm in maximum dimension. FREE FLUID: None. US/US abdomen comp w elastography IMPRESSION: 1. Normal-appearing liver with mild splenomegaly. 2. Liver elastography: Although measurements appear to rule out compensated advanced chronic liver disease, there is statistical variability of the sampling which decreases accuracy. REFERENCE: Society of Radiologists in Ultrasound Liver Stiffness Thresholds (2019): LIVER STIFFNESS THRESHOLDS: *Liver Stiffness equal or less than 1.3 m/s: High probability of being normal. *Liver Stiffness less than 1.7 m/s: In the absence of other known clinical signs, rules out compensated advanced chronic liver disease. *Liver Stiffness 1.7-2.1 m/s: Suggestive of compensated advanced chronic liver disease but need further test for confirmation. *Liver Stiffness over 2.1 m/s: Rules in compensated advanced chronic liver disease. *Liver Stiffness over 2.4 m/s: Suggestive of clinically significant portal hypertension. QUALITY OF DATA SET: *IQR/Median value equal or less than 0.15 implies a quality data set. *IQR/Median value over 0.15 implies a poor quality data set. SIGNIFICANT CHANGE FROM PRIOR EXAM: Significant change if liver stiffness measurement is 10% or greater from prior exam. OTHER CONSIDERATIONS: The stage of liver fibrosis may be overestimated in the setting of acute hepatitis, liver inflammation, elevated liver function tests, hepatic vascular congestion, obstructive cholestasis, non-fasting state, and infiltrative diseases such as amyloidosis and lymphoma. In some patients with NAFLD, the liver stiffness thresholds for compensated advanced chronic liver disease may be lower. In causes other than viral hepatitis and NAFLD, liver stiffness thresholds are not well established.
== END 2023-03-16 08:27 | disposition home or self-care (01) ==
LOC: HO.US 08:26
PROVIDERS: PCP Physician Assistant; Visit Provider Internal Medicine
DX: R74.01 Elevation of levels of liver transaminase levels (principal)
CPT/HCPCS: 76700; 76981

== ENCOUNTER 2023-03-18 09:52 | Outpatient (AMB) | payer OTHER, SELFPAY ==
[2023-03-18 10:21] VITALS: BP 128/80; PULSE 117; O2SAT 98; BMI 46.9
--- NOTE | 2023-03-18 10:21 | MHC.PC.OV ---
Vital Signs 03/18/23 10:21 Height 5 ft 4 in Weight 273 lb 6 oz BMI 46.9 BP 128/80 Blood Pressure Location Lt brachial Position Sitting Pulse 117 H Pulse Source Pulse Oximeter Pulse Oximetry (%) 98 Oxygen Delivery Method Room Air Intake Visit Reasons: Annual exam Intake Note: The patient is present today for a physical, re-establishing care. The previous PCP was Ese, and US and lab results were ordered by Dr. Jones. The patient's current concerns include a surgical wound that appears opened, and they are requesting antibiotics if necessary. Additionally, the patient has a rash on their hand and suspects it might be eczema. Striper Machine Required: No Accompanied by: God Father Allergies acetaminophen [Vicodin] Allergy (Unknown, Verified 03/18/23 10:50) Itchy codeine [CODEINE] Allergy (Unknown, Verified 03/18/23 10:50) ITCHING hydrocodone [Vicodin] Allergy (Unknown, Verified 03/18/23 10:50) Itchy tramadol [TRAMADOL] Allergy (Unknown, Verified 03/18/23 10:50) DIZZY/NAUSEA Medication List - Last Reconciled 03/18/23 by Beto Ragland PA-C buprenorphine-naloxone 8-2 mg (Suboxone) 8 mg sublingual TID clonidine HCl 0.1 mg PO BID CPAP (CPAP Machine/Device) patients needs cpap replaced due to recall, heated humidifier with all necessary supplies methylphenidate HCl 50 mg PO DAILY quetiapine 50 mg PO DAILY Tobacco use date assessed: 03/18/23 Dental Screening Dental Screen Date: 03/18/23 Did you have a dental visit in the last 12 months?: Yes Did you have a dental problem in the last 6 months where you did not have access to dental care?: No Was dental information given to patient?: Patient has dentist HPI Annual exam HPI Details Patient is a 37-year-old female here today for an annual physical. This is the 1st time I am meeting this 37-year-old female with a past medical history significant for morbid obesity, opiate dependency in remission, ADHD, asthma.. Recently seen a general surgeon for breast mass as removed, has been having a bit of trouble with her surgical incision. report having green discharge as of lately. She did have follow-up with her general surgeon. .. Concern--> she reports she often gets a pounding sensation in her right ear. Of note on physical exam she does have a cerumen impaction in left external canal. .. Opiate dependency: Has been in remission, continues on Suboxone through a treatment center. .. Mood disorder/ADHD: Patient is followed by psychiatrist whom is managing her mental health medication. She is on Seroquel 50 mg for her mood stabilization. Continues on Concerta for her ADHD Vaccines: Needs flu, pneumonia and tetanus vaccines, decline COVID Media Account Executive: [facility] [place]. 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 at home: Yes (2-sons, mom to help post-op) Do you presently have visiting nurse or other home services: No Alcohol intake: never Patient Tobacco Use Status: Former Tobacco user Quit Date: 2012 Tobacco use type: Cigarette e-Cigarette/Vaping Use: Never Used Second Hand Smoke Exposure: No Substance Use Type: Former Substance User and Opiates service: No Current occupational status: disabled Cognitive needs: No Hearing needs: No Vision needs: No Female Reproductive History Menstrual Age of Menarche: 10 Questionnaire PHQ-9 Over the last 2 weeks, how often have you been bothered by any of the following problems? 1. Little interest or pleasure in doing things: not at all 2. Feeling down, depressed, or hopeless: not at all 3. Trouble falling or staying asleep, or sleeping too much: not at all 4. Feeling tired or having little energy: not at all 5. Poor appetite or overeating: not at all 6. Feeling bad about yourself - or that you are a failure or have let yourself or your family down: not at all 7. Trouble concentrating on things, such as reading the newspaper or watching television: not at all 8. Moving or speaking so slowly that other people could have noticed. Or the opposite - being so fidgety or restless that you have been moving around a lot more than usual: not at all 9. Thoughts that you would be better off or of hurting yourself in some way: not at all Total score: 0 Depression Screening Interpretation: Negative Depression Screening Done: Yes 43287 - PHQ-9 Billing: Yes Source: Developed by Drs. Nathan Roberts, Grace Gonzalez, Silvano Lucas and colleagues, with an educational bethany from [employer]. Thrive Questionnaire Date Thrive assessed: 03/18/23 I am a: Patient What is your living situation today?: I have a steady place to live Within the past 12 months, did the food you bought not last and you didn't have the money to get more?: Never true Within the past 12 months, did you worry whether your food would run out before you got money to buy more?: Never true Do you have trouble paying for medicines?: No Do you have trouble getting transportation to medical appointments?: No Do you have trouble paying your heating and electricity bill?: No Do you have trouble taking care of your child, family member or friend?: No Do you have trouble with day-to-day activities such as bathing, preparing meals, shopping, managing finances, etc.?: No Are you currently unemployed and looking for a job?: No Are you interested in more education?: No Please select the resources that you would like help with: None Currently or been in a relationship where the following occur: no concerns reported THRIVE Score: 0 AUDIT C Alcohol Use Questionnaire (AUDIT-C) 1. How often do you have a drink containing alcohol?: Never 3. How often do you have six or more drinks on one occasion?: Never Total Score: 0 MENG-7 AMB Questionnaire MENG-7 Date MENG - 7 assessed: 03/18/23 Feeling nervous, anxious, or on edge: 0 = Not at all Not being able to stop or control worryin = Not at all Worrying too much about different things: 0 = Not at all Trouble relaxin = Not at all Being so restless that it is hard to sit still: 0 = Not at all Becoming easily annoyed or irritable: 0 = Not at all Feeling afraid as if something awful might happen: 0 = Not at all Total MENG-7 score (0-4 normal; 5-9 mild; 10-14 moderate; 15-21 severe): 0 Source: Developed by Drs. Nathan Roberts, Grace Gonzalez, Silvano Lucas and colleagues, with an educational bethany from [employer]. MENG-7 Assessment Billing MENG-7 Assessment Tool: MENG-7 Assessment 59968 ACT Questionnaire In the past 4 weeks, how much of the time did your asthma keep you from getting as much done at work, school or at home?: None of the time During the past 4 weeks, how often have you had shortness of breath?: Not at all During the past 4 weeks, how often did your asthma symptoms wake you up at night or earlier than usual in the morning?: Not at all During the past 4 weeks, how often have you had to use your rescue inhaler or nebulizer medication?: Not at all How would you rate your asthma control during the past 4 weeks?: Completely controlled ACT Interpretation: Negative Score: 25 Review of Systems Const Denies body aches, Denies chills, Denies excessive sweating, Denies fatigue, Denies fever(s) and Denies headache(s) Eyes Denies blurry vision ENT Denies dysphagia, Denies vertigo, Denies dizziness, Denies headache(s), Denies hearing loss and Denies tinnitus Card Denies chest pain, Denies chest pain with activity, Denies syncope, Denies irregular heart rhythm and Denies dyspnea Resp Denies chest congestion, Denies cough, Denies hemoptysis, Denies dyspnea and Denies wheezing GI Denies abdominal pain, Denies melena, Denies hematochezia, Denies coffee ground emesis, Denies dysphagia, Denies diarrhea, Denies nausea and Denies vomiting Denies urinary frequency, Denies dysuria, Denies urinary hesitancy and Denies urinary urgency Musc Denies arthralgias, Denies limited range of motion, Denies muscle cramps and Denies muscle weakness Skin/Breast Denies rash and Denies skin ulcer Neuro Denies Abnormal speech present, Denies confusion, Denies vertigo, Denies dizziness, Denies syncope, Denies headache(s), Denies memory loss and Denies seizure-like activity Psych Denies anxiety, Denies confusion, Denies depression, Denies memory loss, Denies panic attacks and Denies paranoia Endo Denies excessive sweating, Denies fatigue, Denies flushing, Denies polydipsia and Denies polyuria Aller/Immun Denies wheezing Physical exam (Primary Care) Vital Signs: Last Vital Signs Pulse 117 H 03/18/23 10:21 BP 128/80 03/18/23 10:21 Pulse Ox 98 03/18/23 10:21 Oxygen Delivery Method Room Air 03/18/23 10:21 BMI result Body Mass Index 46.9 BMI Assessment/Plan discussion: High Tobacco/Smoking Status: Tobacco use Status Tobacco use date assessed 03/18/23 03/18/23 10:33 Patient Tobacco Use Status Former Tobacco user 03/18/23 10:50 Tobacco use type Cigarette 03/18/23 10:50 e-Cigarette/Vaping Use Never Used 03/18/23 10:50 PHQ-9: PHQ-9 Score PHQ-9: Total score 0 03/18/23 10:46 Depression Screening Interpretation: Negative Thrive Assessment: Date of Thrive Assessment Date Thrive assessed 03/18/23 03/18/23 10:33 Currently or been in a relationship where the following occur: no concerns reported Const Other: Obese General: cooperative, comfortable, no acute distress, alert and awake; No confusion Orientation/consciousness: oriented to person, oriented to place, patient oriented x3 and No confusion HENMT Other: LEFT EXTERNAL CANAL: CERUMEN IMPACTION, CLEAR AFTER WARM WATER LAVAGE. DID HAVE LEFT ERYTHEMATOUS TYMPANIC MEMBRANE Head: Yes normocephalic Ears: external ears normal Face and sinus: No sinus tenderness Mouth: Normal oral and palatal mucosa present and tongue normal Teeth and gingiva: dentition normal and gingiva normal Throat: Yes posterior oropharynx normal, Yes tonsils normal and Yes uvula midline Eyes Conjunctivae: conjunctivae normal Sclerae: sclerae normal Pupils: Equal, round and reactive pupils present EOM: EOMs intact bilaterally Direct Ophthalmoscopy: No no photophobia Neck Neck: Yes no lymphadenopathy, No tender and Yes no JVD Thyroid: Thyroid normal Carotids: no bruits Chest Chest palpation & inspection: no tenderness Chest/axillae images: 1. OPEN SUPERFICIAL WOUND AT 06:00 O'CLOCK FROM THE [place]. MINIMAL NOTED PURULENT/GREENISH DISCHARGE Resp Effort & Inspection: normal respiratory effort, no audible wheezes, not labored and no stridor Auscultation: no crackles, no rales, no rhonchi and no wheezes Cardio Jugular venous distension: no JVD Rate: regular rate, not bradycardic and not tachycardic Rhythm: regular rhythm Bruits: no carotid bruits Peripheral pulses: Peripheral pulses 2+ throughout GI Inspection: Yes normal to inspection, No abdominal wall ecchymosis and No visible herniation Palpation (GI): Soft to palpation, nontender, no guarding, not rigid and No hepatosplenomegaly present Auscultation: normoactive bowel sounds General: Yes no CVA tenderness Back/Spine/Pelvis Back: no CVA tenderness and No back tenderness Cervical Spine: cervical ROM normal Thoracic/Lumbar Spine: thoracic and lumbar spine normal to inspection, straight leg raise negative bilaterally, No thoraco-lumbar ROM limited and No lumbar spinal tenderness Skin Lesions: no lesions Rashes: no rashes Wounds: no wounds Neuro General: oriented to person, oriented to place, patient oriented x3, CN's II-XI intact bilaterally and No confusion Cranial nerves: Yes Equal, round and reactive pupils present and Yes Normal accommodation reflex present Cognition (Neuro): normal cognition Speech: No Abnormal speech present Gait exam (Neuro): Normal gait present Motor exam (neuro): 5/5 motor strength present throughout Extrem Right upper extremity: full ROM; no cyanosis Left upper extremity: full ROM; no cyanosis Right lower extremity: no edema Left lower extremity: no edema Psych Appearance: grossly normal Mental Status: mental status grossly normal Affect: normal affect Attitude: cooperative Thought process: Normal thought process present Assessment and Plan Assessment & Plan (1) Annual physical exam: Code(s): Z00.00 - Encounter for general adult medical examination without abnormal findings (2) Skin lesion of breast: Code(s): L98.8 - Other specified disorders of the skin and subcutaneous tissue Plan: No surrounding erythema though does have some minimal purulent discharge. Will start on Bactrim for both breast wound and possible left otitis media (3) Morbid obesity with BMI of 45.0-49.9, adult: Code(s): E66.01 - Morbid (severe) obesity due to excess calories; Z68.42 - Body mass index [BMI] 45.0-49.9, adult Plan: Start diet and exercise. BMI goal is less than 30. (4) Opioid dependence, in remission: Code(s): F11.21 - Opioid dependence, in remission Plan: Continue Suboxone (5) Impacted cerumen, left ear: Code(s): H61.22 - Impacted cerumen, left ear (6) Asthma: Code(s): J45.909 - Unspecified asthma, uncomplicated Qualifiers: Asthma complication type: unspecified Asthma persistence: intermittent Asthma severity: mild Qualified Code(s): J45.20 - Mild intermittent asthma, uncomplicated Plan: Patient's asthma has been fairly well controlled with only p.r.n. use of her albuterol inhaler. She denies any nighttime awakenings with asthma symptoms or recent asthma exacerbations. (7) LORNE (obstructive sleep apnea): Code(s): G47.33 - Obstructive sleep apnea (adult) (pediatric) Plan: She continues with CPAP machine on nightly basis with good effect on her sleep. (8) Screening for diabetes mellitus (DM): Code(s): Z13.1 - Encounter for screening for diabetes mellitus (9) Atopic dermatitis: Code(s): L20.9 - Atopic dermatitis, unspecified Qualifiers: Atopic dermatitis type: flexural Qualified Code(s): L20.89 - Other atopic dermatitis Plan: Noted to have rough texture skin over bilateral hands most consistent with atopic dermatitis. Will supply patient with steroid topical ointment. Orders: Orders Comprehensive [place]. Panel Fast 03/18/23 Z13.1 - Encounter for screening for diabetes mellitus Medications: New albuterol sulfate 90 mcg/actuation 1 inh inhalation QID 30 days PRN 8.5 grams 3RF shortness of breath or wheezing J45.20 - Mild intermittent asthma, uncomplicated sulfamethoxazole-trimethoprim 800-160 mg (Bactrim DS) 1 tab PO BID 10 days 20 tabs 0RF L98.8 - Other specified disorders of the skin and subcutaneous tissue triamcinolone acetonide 0.5% 1 appl topical DAILY 15 days 15 grams 0RF L20.9 - Atopic dermatitis, unspecified Coding Level of Care Code Est Pt Prev Care [id number]([id number]) Diagnoses Annual physical exam Z00.00 Skin lesion of breast L98.8 Morbid obesity with BMI of 45.0-49.9, adult E66.01; Z68.42 Opioid dependence, in remission F11.21 Impacted cerumen, left ear H61.22 Mild intermittent asthma, unspecified whether complicated J45.20 Asthma complication type: unspecified Asthma persistence: intermittent Asthma severity: mild LORNE (obstructive sleep apnea) G47.33 Screening for diabetes mellitus (DM) Z13.1 Flexural atopic dermatitis L20.89 Atopic dermatitis type: flexural Additional Codes MENG-7 Assessment Billing - MENG-7 Assessment Tool: MENG-7 Assessment 32475 ([id number])
== END 2023-03-18 11:23 | disposition home or self-care (01) ==
PROVIDERS: PCP Physician Assistant; Visit Provider Physician Assistant
DX: Z00.00 Encounter for general adult medical examination without abnormal findings (principal); L98.8 Other specified disorders of the skin and subcutaneous tissue; E66.01 Morbid (severe) obesity due to excess calories; Z68.42 Body mass index [BMI] 45.0-49.9, adult; F11.21 Opioid dependence, in remission; H61.22 Impacted cerumen, left ear; J45.20 Mild intermittent asthma, uncomplicated; G47.33 Obstructive sleep apnea (adult) (pediatric); Z13.1 Encounter for screening for diabetes mellitus; L20.89 Other atopic dermatitis
CPT/HCPCS: 99395

== ENCOUNTER 2023-09-20 10:53 | Outpatient (AMB) | payer OTHER, SELFPAY ==
--- NOTE | 2023-09-20 10:53 | MHC.PC.OV ---
Vital Signs 09/20/23 10:54 Height 5 ft 4 in Weight 275 lb 8 oz BMI 47.3 BP 124/82 Blood Pressure Location Lt brachial Position Sitting Pulse 104 H Pulse Source Pulse Oximeter Pulse Oximetry (%) 97 Oxygen Delivery Method Room Air Intake Visit Reasons: F/U on Labs Intake Note: Pt is here for routine follow up. 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 Required: No Accompanied by: Self / Same As Patient Allergies acetaminophen [Vicodin] Allergy (Unknown, Verified 09/20/23 11:03) Itchy codeine [CODEINE] Allergy (Unknown, Verified 09/20/23 11:03) ITCHING hydrocodone [Vicodin] Allergy (Unknown, Verified 09/20/23 11:03) Itchy tramadol [TRAMADOL] Allergy (Unknown, Verified 09/20/23 11:03) DIZZY/NAUSEA Medication List - Last Reconciled 09/20/23 by Beto Ragland PA-C albuterol sulfate 90 mcg/actuation 1 inh inhalation QID PRN 30 days buprenorphine-naloxone 8-2 mg (Suboxone) 8 mg sublingual TID clonidine HCl 0.1 mg PO BID CPAP (CPAP Machine/Device) patients needs cpap replaced due to recall, heated humidifier with all necessary supplies loratadine 10 mg PO DAILY 90 days methylphenidate HCl LA 50 mg PO DAILY triamcinolone acetonide 0.5% 1 appl topical DAILY 15 days Tobacco use date assessed: 03/18/23 Dental Screening Dental Screen Date: 03/18/23 HPI F/U on Labs HPI Details Patient is a 37-year-old female here today for follow-up visit. Patient has a past medical history significant for morbid obesity, opiate dependency in remission, ADHD, asthma, history of brain aneurysm. Brain aneurysm: Was noted to have a brain aneurysm several years ago on CT. At the time she was having some dizziness spells which prompted the imaging of her head. She was followed by Neurology. She has not had any follow-up imaging. Will try to get records from [facility] on her size of brain aneurysm .. Concern--> she is concerned about her weight, she reports it is very hard for her to lose weight. She has not been able to be physically active due to shortness of breath on exertion secondary to being obese. .. Opiate dependency: Has been in remission, continues on Suboxone through a treatment center. .. Mood disorder/ADHD: Patient is followed by psychiatrist whom is managing her mental health medication. She is on Seroquel 50 mg for her mood stabilization. Continues on Concerta for her ADHD [facility] Medical History (Updated 09/21/23 @ 07:35 by Beto Ragland PA-C) Hepatitis C Transaminitis Hx of vertigo History of hepatitis C Elevated LFTs Wears dentures IUD (intrauterine device) in place Herniated lumbar intervertebral disc Hx of seizure disorder History of concussion LORNE on CPAP Anxiety Opioid dependence, in remission Brain aneurysm ADHD Asthma Surgical History History of lumpectomy of left breast (02/03/23) History of hand surgery Social History Housing: Apartment Are you a primary rn critical care to a significant other at home: Yes (2-sons, mom to help post-op) Do you presently have visiting nurse or other home services: No Alcohol intake: never Patient Tobacco Use Status: Former Tobacco user Tobacco use type: Cigarette e-Cigarette/Vaping Use: Never Used Second Hand Smoke Exposure: No Substance Use Type: Former Substance User and Opiates service: No Current occupational status: disabled Cognitive needs: No Hearing needs: No Vision needs: No Female Reproductive History Menstrual Age of Menarche: 10 Questionnaire Thrive Questionnaire Date Thrive assessed: 03/18/23 MENG-7 AMB Questionnaire MENG-7 Date MENG - 7 assessed: 03/18/23 Source: Developed by Drs. Nathan Roberts, Grace Gonzalez, Silvano Lucas and colleagues, with an educational bethany from [employer]. Review of Systems Const Denies headache(s) Eyes Denies loss of vision ENT Denies vertigo, Denies dizziness, Denies headache(s) and Denies sore throat Card Denies chest pain, Denies leg edema and Denies lightheadedness Resp Denies cough, Denies hemoptysis and Denies wheezing GI Denies abdominal pain, Denies melena, Denies constipation, Denies diarrhea and Denies vomiting Denies urinary frequency, Denies dysuria and Denies urinary urgency Musc Denies arthralgias, Denies joint swelling, Denies numbness and Denies tingling Neuro Denies Abnormal speech present, Denies behavioral changes, Denies vertigo, Denies dizziness, Denies headache(s), Denies loss of vision, Denies memory loss, Denies numbness and Denies tingling Psych Denies anxiety, Denies behavioral changes, Denies depression, Denies memory loss and Denies panic attacks Tao/Lymph Denies easy bleeding and Denies easy bruising Aller/Immun Denies wheezing Physical exam (Primary Care) Vital Signs: Last Vital Signs Pulse 104 H 09/20/23 10:54 BP 124/82 09/20/23 10:54 Pulse Ox 97 09/20/23 10:54 Oxygen Delivery Method Room Air 09/20/23 10:54 BMI result Body Mass Index 47.3 Tobacco/Smoking Status: Tobacco use Status Tobacco use date assessed 03/18/23 09/20/23 10:55 Patient Tobacco Use Status Former Tobacco user 09/20/23 10:55 Tobacco use type Cigarette 09/20/23 10:55 e-Cigarette/Vaping Use Never Used 09/20/23 10:55 Thrive Assessment: Date of Thrive Assessment Date Thrive assessed 03/18/23 09/20/23 10:55 Const General: healthy appearing, no acute distress, alert and awake Nutritional Appearance: well nourished Orientation/consciousness: oriented to person, oriented to place and oriented to time HENMT Ears: TM's normal bilaterally General nose exam: Normal nasal mucous membranes and turbinates present Eyes Conjunctivae: conjunctivae normal Sclerae: sclerae normal Pupils: Equal, round and reactive pupils present Neck Neck: Yes no lymphadenopathy and Yes no JVD Thyroid: Thyroid normal Carotids: no bruits Resp Effort & Inspection: normal respiratory effort and not tachypneic Auscultation: no crackles, no rales, no rhonchi and no wheezes Cardio Rate: regular rate Rhythm: regular rhythm Heart sounds: no murmurs and normal S1 and S2 GI Palpation (GI): Soft to palpation, nontender, no hepatomegaly and no splenomegaly Auscultation: normal bowel sounds Skin General skin exam: no rashes or lesions noted and dry skin Neuro General: oriented to person, oriented to place and oriented to time Cranial nerves: Yes Equal, round and reactive pupils present Speech: No Abnormal speech present Gait exam (Neuro): Normal gait present Motor exam (neuro): no tremor noted Extrem Right upper extremity: full ROM Left upper extremity: full ROM Right lower extremity: full ROM; no edema Left lower extremity: full ROM; no edema Psych Mental Status: mental status grossly normal Speech and movement: Normal speech and movement present Affect: normal affect Attitude: cooperative Thought process: Normal thought process present Assessment and Plan Assessment & Plan (1) Morbid obesity with BMI of 45.0-49.9, adult: Code(s): E66.01 - Morbid (severe) obesity due to excess calories; Z68.42 - Body mass index [BMI] 45.0-49.9, adult Plan: She continues to be concerned about her weight. Today's BMI of 47. She is not able to be so physically active due to her shortness of breath on exertion. She will work extensively diet and lifestyle modifications. We did discuss perhaps speaking with a dietitian though will like to hold off on this for now (2) Opioid dependence, in remission: Code(s): F11.21 - Opioid dependence, in remission Plan: Continue Suboxone and has had multiple years sobriety from opiates. (3) Asthma: Code(s): J45.909 - Unspecified asthma, uncomplicated Qualifiers: Asthma complication type: unspecified Asthma persistence: intermittent Asthma severity: mild Qualified Code(s): J45.20 - Mild intermittent asthma, uncomplicated Plan: Patient's asthma has been fairly well controlled with only p.r.n. use of her albuterol inhaler. She denies any nighttime awakenings with asthma symptoms or recent asthma exacerbations. (4) Hair thinning: Code(s): L65.9 - Nonscarring hair loss, unspecified (5) Brain aneurysm: Code(s): I67.1 - Cerebral aneurysm, nonruptured Plan: Has a history a small brain aneurysm. Has been followed by Neurology. At this time we do not have any documentation of the brain aneurysm. Will try to reach out to [facility] the get records. Otherwise patient fairly him symptomatic. Does feel dizzy at times though unsure if this is related. Orders: Orders TSH reflex Free T4 09/20/23 L65.9 - Nonscarring hair loss, unspecified Complete Blood Count no Diff 09/20/23 L65.9 - Nonscarring hair loss, unspecified Coding Level of Care Code Est Pt Level 4 (38007) Diagnoses Morbid obesity with BMI of 45.0-49.9, adult E66.01; Z68.42 Opioid dependence, in remission F11.21 Mild intermittent asthma, unspecified whether complicated J45.20 Asthma complication type: unspecified Asthma persistence: intermittent Asthma severity: mild Hair thinning L65.9 Brain aneurysm I67.1
[2023-09-20 10:54] VITALS: BP 124/82; PULSE 104; O2SAT 97; BMI 47.3
== END 2023-09-20 11:23 | disposition home or self-care (01) ==
PROVIDERS: PCP Physician Assistant; Visit Provider Physician Assistant
DX: E66.01 Morbid (severe) obesity due to excess calories (principal); Z68.42 Body mass index [BMI] 45.0-49.9, adult; F11.21 Opioid dependence, in remission; J45.20 Mild intermittent asthma, uncomplicated; L65.9 Nonscarring hair loss, unspecified; I67.1 Cerebral aneurysm, nonruptured
CPT/HCPCS: 99214

== ENCOUNTER 2024-03-20 10:31 | Outpatient (AMB) | payer OTHER, SELFPAY ==
[2024-03-20 11:17] VITALS: BP 140/100; PULSE 82; TEMP 36.2; O2SAT 99; BMI 48.2
--- NOTE | 2024-03-20 11:17 | A.OFFPC_ITS ---
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 Required: No Accompanied by: Self / Same As Patient Allergies acetaminophen [Vicodin] Allergy (Unknown, Verified 03/20/24 11:27) Itchy codeine [CODEINE] Allergy (Unknown, Verified 03/20/24 11:27) ITCHING hydrocodone [Vicodin] Allergy (Unknown, Verified 03/20/24 11:27) Itchy tramadol [TRAMADOL] Allergy (Unknown, Verified 03/20/24 11:27) DIZZY/NAUSEA Medication List - Last Reconciled 03/20/24 by Beto Ragland PA-C albuterol sulfate 90 mcg/actuation 1 inh inhalation QID PRN 30 days buprenorphine-naloxone 8-2 mg (Suboxone) 8 mg sublingual TID clonidine HCl 0.1 mg PO BID CPAP (CPAP Machine/Device) patients needs cpap replaced due to recall, heated humidifier with all necessary supplies loratadine 10 mg PO DAILY 90 days methylphenidate HCl LA 50 mg PO DAILY quetiapine mg PO triamcinolone acetonide 0.5% 1 appl topical DAILY 15 days Tobacco use date assessed: 03/20/24 Dental Screening Dental Screen Date: 03/20/24 Did you have a dental visit in the last 12 months?: Yes Did you have a dental problem in the last 6 months where you did not have access to dental care?: No Was dental information given to patient?: Patient has dentist HPI follow up 6 months HPI Details Patient is a 38-year-old female here today for follow-up visit. Patient has a past medical history significant for morbid obesity, opiate dependency in remission, ADHD, asthma, history of brain aneurysm. Brain aneurysm: Was noted to have a brain aneurysm several years ago on CT. At the time she was having some dizziness spells which prompted the imaging of her head. She was followed by Neurology show she did not feel her concerns heard. She has not had any follow-up imaging. She continues also to have a thumping sensation in her left ear. .. Concern--> she is concerned about her weight, she reports it is very hard for her to lose weight. She has not been able to be physically active due to shortness of breath on exertion secondary to being obese. We have also noted elevated blood pressure reading today in office. .. Class 3 obesity: Unfortunately has gained weight since last office visit. She recently stopped Seroquel which may has been a causative agent. She does report walking 1-2 miles per day. She denies dietary indiscretion. .. Opiate dependency: Has been in remission, continues on Suboxone through a treatment center. .. Mood disorder/ADHD: Patient is followed by psychiatrist whom is managing her mental health medication. She has been taken off Seroquel over the last few weeks. Continues on Concerta for her ADHD [facility] Medical History Hepatitis C Transaminitis Hx of vertigo History of hepatitis C Elevated LFTs Wears dentures IUD (intrauterine device) in place Herniated lumbar intervertebral disc Hx of seizure disorder History of concussion LORNE on CPAP Anxiety Opioid dependence, in remission Brain aneurysm ADHD Asthma Surgical History History of lumpectomy of left breast (02/03/23) History of hand surgery Social History Housing: Apartment Are you a primary animal care taker to a significant other at home: Yes (2-sons, mom to help post-op) Do you presently have visiting nurse or other home services: No Alcohol intake: never Patient Tobacco Use Status: Former Tobacco user Tobacco use type: Cigarette e-Cigarette/Vaping Use: Never Used Second Hand Smoke Exposure: No Substance Use Type: Former Substance User and Opiates service: No Current occupational status: disabled Cognitive needs: No Hearing needs: No Vision needs: No Female Reproductive History Menstrual Age of Menarche: 10 Questionnaire PHQ-9 Over the last 2 weeks, how often have you been bothered by any of the following problems? 1. Little interest or pleasure in doing things: not at all 2. Feeling down, depressed, or hopeless: not at all 3. Trouble falling or staying asleep, or sleeping too much: not at all 4. Feeling tired or having little energy: not at all 5. Poor appetite or overeating: not at all 6. Feeling bad about yourself - or that you are a failure or have let yourself or your family down: not at all 7. Trouble concentrating on things, such as reading the newspaper or watching television: not at all 8. Moving or speaking so slowly that other people could have noticed. Or the opposite - being so fidgety or restless that you have been moving around a lot more than usual: not at all 9. Thoughts that you would be better off or of hurting yourself in some way: not at all Total score: 0 Depression Screening Interpretation: Negative Depression Screening Done: Yes 00034 - PHQ-9 Billing: Yes Source: Developed by Drs. Nathan Roberts, Grace Gonzalez, Silvano Lucas and colleagues, with an educational bethany from [employer]. Thrive Questionnaire Date Thrive assessed: 03/20/24 I am a: Patient What is your living situation today?: I have a steady place to live Within the past 12 months, did the food you bought not last and you didn't have the money to get more?: Never true Within the past 12 months, did you worry whether your food would run out before you got money to buy more?: Never true Do you have trouble paying for medicines?: No Do you have trouble getting transportation to medical appointments?: No Do you have trouble paying your heating and electricity bill?: No Do you have trouble taking care of your child, family member or friend?: No Do you have trouble with day-to-day activities such as bathing, preparing meals, shopping, managing finances, etc.?: No Are you currently unemployed and looking for a job?: No Are you interested in more education?: No Please select the resources that you would like help with: None Currently or been in a relationship where the following occur: No concerns reported THRIVE Score: 0 AUDIT C Alcohol Use Questionnaire (AUDIT-C) 1. How often do you have a drink containing alcohol?: Never 3. How often do you have six or more drinks on one occasion?: Never Total Score: 0 MENG-7 AMB Questionnaire MENG-7 Date MENG - 7 assessed: 03/20/24 Feeling nervous, anxious, or on edge: 0 = Not at all Not being able to stop or control worryin = Not at all Worrying too much about different things: 0 = Not at all Trouble relaxin = Not at all Being so restless that it is hard to sit still: 0 = Not at all Becoming easily annoyed or irritable: 0 = Not at all Feeling afraid as if something awful might happen: 0 = Not at all Total MENG-7 score (0-4 normal; 5-9 mild; 10-14 moderate; 15-21 severe): 0 Source: Developed by Drs. Nathan Roberts, Grace Gonzalez, Silvano Lucas and colleagues, with an educational bethany from [employer]. MENG-7 Assessment Billing MENG-7 Assessment Tool: MENG-7 Assessment 41742 Review of Systems Const Denies headache(s) Eyes Denies loss of vision ENT Denies vertigo, Denies dizziness, Denies headache(s) and Denies sore throat Card Denies chest pain, Denies leg edema and Denies lightheadedness Resp Denies cough, Denies hemoptysis and Denies wheezing GI Denies abdominal pain, Denies melena, Denies constipation, Denies diarrhea and Denies vomiting Denies urinary frequency, Denies dysuria and Denies urinary urgency Musc Denies arthralgias, Denies joint swelling, Denies numbness and Denies tingling Neuro Denies Abnormal speech present, Denies behavioral changes, Denies vertigo, Denies dizziness, Denies headache(s), Denies loss of vision, Denies memory loss, Denies numbness and Denies tingling Psych Denies anxiety, Denies behavioral changes, Denies depression, Denies memory loss and Denies panic attacks Tao/Lymph Denies easy bleeding and Denies easy bruising Aller/Immun Denies wheezing Physical exam (Primary Care) Vital Signs: Last Vital Signs Temp 97.1 F 03/20/24 11:17 Pulse 82 03/20/24 11:17 BP 140/100 H 03/20/24 11:17 Pulse Ox 99 03/20/24 11:17 Oxygen Delivery Method Room Air 03/20/24 11:17 BMI result Body Mass Index 48.2 BMI Assessment/Plan discussion: High BMI High, discussed plan: lifestyle, weight reduction, dietary and physical activity Tobacco/Smoking Status: Tobacco use Status Tobacco use date assessed 03/20/24 03/20/24 11:21 Patient Tobacco Use Status Former Tobacco user 03/20/24 11:21 Tobacco use type Cigarette 03/20/24 11:21 e-Cigarette/Vaping Use Never Used 03/20/24 11:21 PHQ-9: PHQ-9 Score PHQ-9: Total score 0 03/22/24 09:18 Depression Screening Interpretation: Negative Thrive Assessment: Date of Thrive Assessment Date Thrive assessed 03/20/24 03/20/24 11:21 Currently or been in a relationship where the following occur: No concerns reported Const General: healthy appearing, no acute distress, alert and awake Nutritional Appearance: well nourished Orientation/consciousness: oriented to person, oriented to place and oriented to time HENMT Ears: TM's normal bilaterally General nose exam: Normal nasal mucous membranes and turbinates present Eyes Conjunctivae: conjunctivae normal Sclerae: sclerae normal Pupils: Equal, round and reactive pupils present Neck Neck: Yes no lymphadenopathy and Yes no JVD Thyroid: Thyroid normal Carotids: no bruits Resp Effort & Inspection: normal respiratory effort and not tachypneic Auscultation: no crackles, no rales, no rhonchi and no wheezes Cardio Rate: regular rate Rhythm: regular rhythm Heart sounds: no murmurs and normal S1 and S2 GI Palpation (GI): Soft to palpation, nontender, no hepatomegaly and no splenomegaly Auscultation: normal bowel sounds Skin General skin exam: no rashes or lesions noted and dry skin Neuro General: oriented to person, oriented to place and oriented to time Cranial nerves: Yes Equal, round and reactive pupils present Speech: No Abnormal speech present Gait exam (Neuro): Normal gait present Motor exam (neuro): no tremor noted Extrem Right upper extremity: full ROM Left upper extremity: full ROM Right lower extremity: full ROM; no edema Left lower extremity: full ROM; no edema Psych Mental Status: mental status grossly normal Speech and movement: Normal speech and movement present Affect: normal affect Attitude: cooperative Thought process: Normal thought process present Coding Level of Care Code Est Pt Level 4 (36244) Diagnoses Brain aneurysm I67.1 Primary hypertension I10 Hypertension type: primary hypertension Opioid dependence, in remission F11.21 Attention deficit hyperactivity disorder (ADHD), combined type F90.2 Attention deficit-hyperactivity disorder type: combined inattentive- hyperactive Class 3 obesity E66.813 Additional Codes MENG-7 Assessment Billing - MENG-7 Assessment Tool: MENG-7 Assessment 76352 ([id number]) PHQ-9 - 96705 - PHQ-9 Billing: Yes ([id number]) Assessment & Plan Assessment & Plan (1) Brain aneurysm: Code(s): I67.1 - Cerebral aneurysm, nonruptured Category: Medical Plan: Patient has a history of a brain aneurysm noted several years ago incidentally. She continues to have intermittent episodes vertigo and right ear pounding. She has followed up with a neurologist locally though no recommendations. He would like to see a new neurologist at [facility] for 2nd opinion (2) HTN (hypertension): Code(s): I10 - Essential (primary) hypertension Category: Medical Qualifiers: Hypertension type: primary hypertension Qualified Code(s): I10 - Essential (primary) hypertension Plan: Patient's blood pressure elevated today in office. Will start hydrochlorothiazide 12.5 mg to help with blood pressure control a bit of her lower extremity edema. Advised patient to start monitoring blood pressure at home. Goal blood pressures to be below 140/90 (3) Opioid dependence, in remission: Code(s): F11.21 - Opioid dependence, in remission Category: Medical Plan: Continues on Suboxone and is followed by local clinic. She has been sober from street opiates for quite some time now. (4) ADHD: Code(s): F90.9 - Attention-deficit hyperactivity disorder, unspecified type Category: Medical Qualifiers: Attention deficit-hyperactivity disorder type: combined inattentive- hyperactive Qualified Code(s): F90.2 - Attention-deficit hyperactivity disorder, combined type Plan: Patient is followed by psychiatrist and continues on methylphenidate for her attention and focus. (5) Class 3 obesity: Code(s): E66.813 - Obesity, class 3 Category: Medical Plan: Patient has unfortunately gained weight since last office visit. Today's BMI at 48. She reports walking a mile or 2 a day and has been Orders: Orders Microalbumin, Random (w Creat) 03/20/24 I10 - Essential (primary) hypertension Comprehensive Alpha. Panel Fast 03/20/24 I10 - Essential (primary) hypertension Complete Blood Count no Diff 03/20/24 I10 - Essential (primary) hypertension Referrals Neurology Referral I67.1 - Cerebral aneurysm, nonruptured Medications: New blood pressure monitor As directed 1 ea 0RF I10 - Essential (primary) hypertension hydrochlorothiazide 12.5 mg PO DAILY 30 tabs 2RF 30 days I10 - Essential (primary) hypertension
== END 2024-03-20 11:44 | disposition home or self-care (01) ==
PROVIDERS: PCP Physician Assistant; Visit Provider Physician Assistant
DX: I10 Essential (primary) hypertension (principal); F11.21 Opioid dependence, in remission; E66.813 Obesity, class 3; Z68.42 Body mass index [BMI] 45.0-49.9, adult; I67.1 Cerebral aneurysm, nonruptured; F90.2 Attention-deficit hyperactivity disorder, combined type

== ENCOUNTER → 2024-03-20 10:31 | Outpatient (BNVA) | payer OTHER, SELFPAY | PROVIDERS: PCP Physician Assistant; Visit Provider Physician Assistant | DX: I67.1 Cerebral aneurysm, nonruptured (principal); I10 Essential (primary) hypertension; F11.21 Opioid dependence, in remission; F90.2 Attention-deficit hyperactivity disorder, combined type; E66.813 Obesity, class 3; Z68.42 Body mass index [BMI] 45.0-49.9, adult; Z71.3 Dietary counseling and surveillance | CPT/HCPCS: 96127; 99212 ==